=== PATIENT | male | born 2005 | race Caucasian/White ===

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

== ENCOUNTER 2024-09-18 17:56 | Emergency (ER) | payer BC, OTHER ==
[2024-09-18] MEDS: Take Home: Amoxicillin/Clavulanate K 875-125 MG Tab, 2 Tab Pack PO ONE (18:54)
[2024-09-18] MEDS: Take Home: Doxycycline 100 MG Cap, 4 Cap Pack PO ONE (18:54)
== END 2024-09-18 18:38 | disposition home or self-care (01) ==
LOC: VM.ED 17:56
DX: L03.116 Cellulitis of left lower limb (principal)
CPT/HCPCS: 99282; A9270